=== PATIENT | female | born 1940 | race Caucasian/White ===

== ENCOUNTER → 2017-02-14 | Outpatient (CLI) | payer OTHER, BC ==
--- NOTE | 2017-02-14 16:19 | MRI ---
HISTORY: Neck pain and cervical radiculopathy. Noncontrast MRI examination of the cervical spine. Technique: Sagittal T1, sagittal T2, axial T2 weighted images were obtained. Findings: Alignment of the cervical spine is maintained. There is moderate spondylosis and facet DJD seen from C2 through C1 with multilevel disc desiccation. There is no evidence for an acute fracture or subluxation. No aggressive bone marrow lesion is seen. There is no evidence for cerebral tonsillar ectopia. The posterior elements appear diffusely intact. There is no evidence for cord expansion, co rd edema, or abnormal cord signal. No intrathecal mass lesions or intrathecal hemorrhage is seen. The re is no cervical soft tissue mass lesion appreciated. C2 -- C3: Broad-based, posterior, disc osteophyte complex which combines with facet DJD to create mod erate spinal canal narrowing and moderate bilateral foraminal narrowing. C3 -- C4: Broad-based, posterior, disc osteophyte complex which combines with facet DJD to create mod erate spinal canal narrowing and moderate bilateral foraminal narrowing. C4 -- C5: Broad-based, posterior, disc bulge which combines with facet DJD to create mild to moderate spinal canal stenosis and [id number] bilateral foraminal narrowing. C5 -- C6: Broad-based, posterior, disc osteophyte complex which combines with facet DJD to create mod erate spinal canal stenosis and moderate to severe bilateral foraminal narrowing. C6 -- C7: Broad-based, posterior, disc osteophyte complex which combines with facet DJD to create mod erate spinal canal stenosis and moderate to severe bilateral foraminal narrowing. C7 -- T1: Posterior disc bulge which creates [id number] spinal canal narrowing. IMPRESSION: Moderate cervical spondylotic change with C2-T1 central disc osteophyte complexes and facet DJD which creates associated foraminal and spinal canal stenosis at these levels, as detailed above. Moderate to severe foraminal narrowing is seen at the levels of C5-6 and C6-7 in this patient-please correlate . No evidence for cervical cord myelomalacia, however. Reported By:
--- NOTE | 2017-02-15 15:34 | MRI ---
HISTORY: Lumbar spondylosis. Study: Magnetic resonance imaging of the lumbar spine: Multiplanar multisequence magnetic resonance imaging of the lumbar spine was performed on a closed magnet. Comparison: None Findings: The paraspinal soft tissues demonstrate what is seen of the kidneys to be normal. No evidence of an abdominal aortic aneurysm or retroperitoneal lymph node enlargement identified . Mild paraspinous mu scle atrophy is noted. The sagittal images demonstrate loss of normal lumbar lordosis. There is 3-4 mm of spondylolisthesis of L4 on L5. There are bilateral pedicle screws present at L4 and L5 with spinal stabilization alex jose interconnecting them. Moderate disc desiccation is noted at several levels. Minimal disc space narrowing is present at L3/L4 with mild at L5/S1. The marrow signal intensity is homogeneous. I see no evidence of marrow edema that would suggest a fracture. The conus is of normal signal intensity, size location. T11/T12: No significant abnormalities. T12/L1: No significant abnormalities. L1/L2: Mild facet arthropathy. Minimal thickening of the ligamentum flavum. No other significant a bnormalities. L2/L3: Minimal disc bulging. [id number] facet arthropathy. Mild thickening of the ligamentum flavum. Minimal spinal stenosis. L3/L4: Moderate disc bulging. This extends more into the left neural foramen producing moderate for aminal stenosis but no evidence of neural impingement. Moderate facet arthropathy is noted. Pedicle screws in order for bilaterally. L4/L5: Mild diffuse disc bulging. Mild facet arthropathy. Pedicle screws enter L5 bilaterally. Mo derate foraminal stenosis is noted on the left without evidence of neural impingement. L5/S1: Mild disc bulging. There is a far lateral disc protrusion within and outside the right neura l foramen, possibly producing neural impingement. Moderate facet arthropathy. IMPRESSION: 1. Lumbar spondylosis as described above. 2. No acute bony abnormalities are identified. 3. Please see detailed report above. Reported By:
== END ==
LOC: RAD 12:15
PROVIDERS: ATTEND Psychiatry & Neurology Neurology
DX: M48.02 Spinal stenosis, cervical region (principal); M47.816 Spondylosis without myelopathy or radiculopathy, lumbar region
CPT/HCPCS: 72141; 72148